=== PATIENT | male | born 2000 | race Hispanic/Latino ===

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

== ENCOUNTER 2023-03-04 04:08 | Emergency (ER) | payer OTHER ==
[~2023-03-04] VITALS: Ht 175.3 cm; Wt 85.3 kg
[2023-03-04 04:08] VITALS: BP 126/70; TEMP 98.6
== END 2023-03-04 04:20 | disposition home or self-care (01) ==
LOC: ED 04:08
DX: Z53.21 Procedure and treatment not carried out due to patient leaving prior to being seen by health care provider (principal)
CPT/HCPCS: 99281